=== PATIENT | female | born 1965 | race Caucasian/White ===

== ENCOUNTER 2018-02-14 23:25 | Emergency (ER) | payer MEDICAID, OTHER ==
[2018-02-14] MEDS ORDERED: TDAP ADULT 0.5 ML INJ (BOOSTRIX) IM ONE (23:47)
--- NOTE | 2018-02-14 23:50 | EDPHY ---
H & P Time Seen by Provider: 02/14/18 23:41 HPI/ROS: CC: thumb injury HPI: This 53-year-old female presents to emergency department today after she injured her left thumb using a cheese grater. She avulsed a small area of the skin and nail of the distal/medial aspect just prior to arrival. She did not cleanse the wound. She did not take any pain medication. Her last tetanus immunization has been greater than five years. REVIEW OF SYSTEMS: Constitutional: No fever, no chills. Eyes: No discharge. Respiratory: No cough, no shortness of breath. Gastrointestinal: No vomiting. Past Medical/Surgical History: PMH: Denied PSH: D&C, Tonsillectomy ALLERGIES: Demerol Meds: Denied Denies Last tetanus immunization greater than five years SOCIAL: Denies tobacco products, occasional ETOH, no marijuana PCP: Dr. Seth Garcia Smoking Status: Never smoked Physical Exam: General Appearance: Alert, no distress. Eyes: Pupils equal and round no pallor or injection. ENT, Mouth: Mucous membranes are moist. Respiratory: There are no retractions. Cardiovascular: Normal peripheral perfusion. Neurological: Awake and alert, sensory and motor exams grossly normal. Skin: Warm and dry. Musculoskeletal: Neck is supple. Extremities are symmetrical, full range of motion. There is a 0.5cm circular avulsion of skin and nail at the distal, medial aspect of the left thumb. No bone or tendon involvement. Psychiatric: Patient is oriented X 3, there is no agitation. DIFFERENTIAL DIAGNOSIS: After history and physical exam differential diagnosis was considered for but not limited to: skin avulsion, nail avulsion, laceration. Constitutional: Initial Vital Signs Temperature (C) 98.2 F 02/14/18 23:30 Heart Rate 84 02/14/18 23:30 Respiratory Rate 16 02/14/18 23:30 Blood Pressure 126/84 H 02/14/18 23:30 O2 Sat (%) 93 02/14/18 23:30 O2 Delivery Mode Room Air Allergies/Adverse Reactions: meperidine HCl [From Demerol] Allergy (Intermediate, Verified 02/14/18 23:38) Hives Home Medications: Medication Instructions Recorded Cephalexin [Keflex (*)] 500 mg PO Q6H #28 cap 02/14/18 Medical Decision Making ED Course/Re-evaluation: The patient was seen and examined. Vital signs reviewed. Her tetanus immunization was updated. There is no indication for wound repair or imaging. The wound on the left thumb was cleansed thoroughly with soap and water. Surgicel was applied for hemostasis and a sterile dressing was applied by the RN. The patient took her own Motrin. She was given a prescription for cephalexin to start if any signs of infection as discussed. Wound care discussed. I have advised her to have a wound check in 2 days, however it is the 16 of February holiday and the patient is going out of town until February 24. She used to live in the area that she is vacationing in and will follow up with a doctor there if necessary or she will follow up with her primary care provider here upon her return. Departure - Departure Disposition: Home, Routine, Self-Care Clinical Impression: Avulsion of skin of thumb Qualifiers: Encounter type: initial encounter Laterality: left Qualified Code(s): S61.002A - Unspecified open wound of left thumb without damage to nail, initial encounter Condition: Good Instructions: Skin Avulsion (ED), Nail Avulsion (ED) Additional Instructions: Wound care as discussed. Start the antibiotic (cephalexin, also known as Keflex ) if any sign of infection as discussed. Follow up immediately if any concerns or upon your return from vacation. Referrals: SETH GARCIA [Non Staff Provider ()] - As per Instructions Prescriptions: Cephalexin [Keflex (*)] 500 mg PO Q6H #28 cap
[2018-02-15 00:33] VITALS: BP 125/88
== END 2018-02-15 00:20 | disposition home or self-care (01) ==
LOC: CED 23:25
DX: S61.002A Unspecified open wound of left thumb without damage to nail, initial encounter (principal); Z23 Encounter for immunization; W27.4XXA Contact with kitchen utensil, initial encounter